=== PATIENT | female | born 1965 | race Caucasian/White ===

== ENCOUNTER → 2017-05-21 | Outpatient (CLI) | payer BC ==
--- NOTE | 2017-05-21 07:15 | DIAGNOSTIC IMAGING REPORT ---
(CHEST) THORAX WITHOUT CLINICAL HISTORY: Multiple pulmonary nodules HISTORY OF BREAST CARCINOMA. COMPARISON STUDY: None CT DOSE: 234.29 mGy.cm TECHNIQUE: CT of the thorax was performed from the thoracic inlet to the lung bases. Images are reviewed in the axial, sagittal, and coronal planes. IV contrast was not administered for this examination. A dose lowering technique was utilized adhering to the principles of ALARA. FINDINGS: Thyroid: No significant thyroid tissue is visualized in this noncontrast study Thoracic aorta: The ascending thoracic aorta measures 36 mm. Heart: The heart is normal in size and configuration, without pericardial effusion. Lungs and pleural spaces: No pleural effusions are visualized. There is no focal pulmonary consolidation. There is a 7 mm right lower lobe solid perifissural nodule as visualized in image #161/[id number]. There is a 3 mm right lower lobe solid perifissural nodule as visualized in image #162/[id number]. There is a 3 mm right lower lobe solid pulmonary nodule as visualized in image #167/346. There is a 5 mm perifissural solid right upper lobe pulmonary nodule as visualized in image #140/346. There is a 7 mm perifissural solid left lower lobe pulmonary nodule as visualized in image 30 151/346. Mediastinum: There is no mediastinal lymphadenopathy. Domenica: There is no evidence of pathologic hilar adenopathy given the limitations of a noncontrast study Axilla: There is no evidence of pathologic axillary lymphadenopathy. There are postsurgical changes within the left axilla and left breast. Upper abdomen: Bilateral nephrolithiasis Skeletal structures: There are no lytic or blastic osseous lesions. IMPRESSION: 1. Low suspicion bilateral solid subcentimeter pulmonary nodules. 2. No evidence of pathologic adenopathy given the limitations of a noncontrast study 3. No evidence of focal pulmonary consolidation 4. Bilateral nephrolithiasis Please refer to below summary of Fleischner criteria recommendations for follow-up of incidental CT nodules (Catina Rose, Guidelines for management of small pulmonary nodules detected on CT scans: A statement from the Fleischner Society, Radiology 237: [phone].) SOLID NODULES Solitary nodule size: <6 mm * low risk patients: no follow-up needed * high risk patients: optional CT at 12 months Solitary nodule size: 6-8 mm * low risk patients: follow-up at 6-12 months, then consider further follow-up at 18-24 months * high risk patients: initial follow-up CT at 6-12 months and then at 18-24 months if no change Solitary nodule size: >8 mm * either low or high risk patients - consider follow-up CT at 3 months, and/or CT-PET, and/or biopsy Multiple nodules size: <6 mm * low risk patients: no routine follow-up * high risk patients: optional CT at 12 months Multiple nodules size: 6-8 mm * low risk patients: follow-up at 3-6 months, then consider further follow-up at 18-24 months * high risk patients: follow-up at 3-6 months, then at 18-24 months if no change Multiple nodules size: >8 mm * low risk patients: follow-up at 3-6 months, then consider further follow-up at 18-24 months * high risk patients: follow-up at 3-6 months, then at 18-24 months if no change Note: newly detected indeterminate nodule in persons 35 years of age or older. * low risk patients: minimal or absent history of smoking and/or other known risk factors * high risk patients: history of smoking or of other known risk factors (e.g. first degree relative with lung cancer, or exposure to asbestos, radon, uranium) * if a nodule up to 8 mm is partly solid or is ground glass further follow-up is required after 24 months to exclude possible slow growing adenocarcinoma (LENKA) SUBSOLID NODULES Solitary pure ground-glass nodule * nodule size <6 mm - no CT follow-up required * nodule size >=6 mm - follow-up CT at 6-12 months, then every 2 years until 5 years Solitary part-solid nodule * nodule size <6 mm - no CT follow-up required * nodule size >=6 mm - follow-up CT at 3-6 months. If unchanged, and solid component remains <6 mm, then annual follow-up for 5 years Multiple subsolid nodules * nodule size <6 mm - follow-up CT at 3-6 months, consider further follow-up at 2 and 4 years if stable * nodule size >=6 mm - follow-up CT at 3-6 months, subsequent management based on the most suspicious nodule(s) Electronically signed by: Reece Johnson M.D. 05/21/2017 7:14 AM Dictated Date/Time: 05/21/2017 7:05 AM
== END | disposition home or self-care (01) ==
LOC: C.CTS 06:46
PROVIDERS: ATTEND Specialist
DX: R91.8 Other nonspecific abnormal finding of lung field (principal)

== ENCOUNTER 2017-08-13 08:13 | Emergency (ER) | payer BC ==
[~2017-08-13] VITALS: Ht 160 cm; Wt 70.7 kg
[2017-08-13 08:17] VITALS: TEMP 36.5; Ht 160 cm; Wt 70.7 kg
--- NOTE | 2017-08-13 08:55 | DIAGNOSTIC IMAGING REPORT ---
L ANKLE MIN 3 VIEWS ROUTINE CLINICAL HISTORY: L ankle pain pain COMPARISON: None. DISCUSSION: The bones and joint spaces appear intact. There is no evidence of fracture, dislocation or bony disease. There is no evidence for soft tissue swelling. IMPRESSION: Negative study. The above report was generated using voice recognition software. It may contain grammatical, syntax or spelling errors. Electronically signed by: Sylvain Dillon M.D. 08/13/2017 8:54 AM Dictated Date/Time: 08/13/2017 8:52 AM
[2017-08-13] MEDS ORDERED: LEVO25TA PO (08:59)
[2017-08-13 09:27] VITALS: BP 119/68; PULSE 71; O2SAT 100
--- NOTE | 2017-08-13 14:41 | EMERGENCY ROOM VISIT NOTE ---
ED Visit Note First contact with patient: 08:20 Chief Complaint: I twisted my left ankle. History of Present Illness: Ms. Burns is a 52-year-old white female who ambulates into the ED complaining of left lateral ankle pain. Patient reports last night approximately 12 hours ago, she was walking a dog and stepped on something, she felt like she twisted her ankle and heard a cracking sensation. Since that time she has been having left lateral ankle pain. Initially it was mildly has gradually increased in intensity. She describes her pain as a sharp sensation. She rates her discomfort 3/10. Her pain is nonradiating. Her pain worsens with weightbearing and ambulation. She has not identified any alleviating factors related to the pain. She reports she took one dose of Aleve last night with minimal relief of her discomfort. She denies any associated symptoms including hip pain, knee pain, lower leg pain , foot pain, foot weakness/numbness/tingling. Additionally she denies any previous significant injuries or surgeries to the ankle or foot. Review of Systems: As noted above in history of present illness. Past Medical History: Hypothyroidism, breast cancer. Current Medications: Synthroid. Allergies to Medications: Penicillin. Social History: Patient is currently employed; she feels safe in her home environment; she denies tobacco use. Physical Examination: Vital Signs: Date Time Temp Pulse Resp B/P (MAP) Pulse Ox O2 Delivery O2 Flow Rate FiO2 08/13/17 09:27 71 18 119/68 100 08/13/17 08:17 36.5 76 18 123/71 99 Room Air GENERAL: 52-year-old female in mild distress due to pain, nontoxic-appearing, afebrile and hemodynamically stable. NEUROLOGICAL: Awake, alert and oriented to person, place and time. Answering questions appropriately and following commands. SKIN: Warm, dry and pink. No soft tissue trauma noted. LEFT LOWER EXTREMITY: No gross bony deformity. No tenderness in the hip, knee, lower leg or foot. Moderate tenderness over the lateral malleolus with swelling but no ecchymosis or bony deformity. Moderate tenderness over the anterior and inferior ligamentous structures of the ankle without laxity. Increase in discomfort with inversion but not plantar flexion, dorsiflexion or eversion. No tenderness throughout the foot. Throughout the foot the skin was warm and pink and capillary refill is brisk. She is able to distinctly slight sensations to all dermatomes. ED Course: Patient is assessed as noted above. Patient's medication list was reviewed. Patient was offered pain medication and refused; she was given ice for pain and comfort. Left Ankle X-Rays: Were read by myself and the radiologist showing no acute fractures or dislocations. Patient was placed in a gel splint and nonweightbearing crutches. Patient was educated about today's findings and instructed on her treatment plan ; she verbalized understanding and agreement with this plan. Clinical Impression: Left lateral ankle pain. Disposition: Patient discharged home in stable condition; prior to departure she was reassessed and subjectively reported she was feeling the same. Plan: Comfort measures were discussed with the patient including rest, ice, elevation , gel splint and nonweightbearing crutches and the use of ibuprofen and acetaminophen. Patient is encouraged to follow-up with orthopedic physician if no better in 7- 10 days. Patient was encouraged return ED for worsening/uncontrolled pain, uncontrolled swelling, foot weakness/numbness/tingling or any new/concerning symptoms.
== END 2017-08-13 09:28 | disposition home or self-care (01) ==
LOC: C.EDB 08:14 → C.EDA 09:28
DX: M25.572 Pain in left ankle and joints of left foot (principal); E03.9 Hypothyroidism, unspecified; Z85.3 Personal history of malignant neoplasm of breast; Z79.899 Other long term (current) drug therapy; Z88.0 Allergy status to penicillin